=== PATIENT | male | born 1945 | race Caucasian/White ===

== ENCOUNTER 2017-05-18 13:23 | Inpatient (IN) ==
--- NOTE | 2017-05-18 14:01 | Diag Imaging Result Doc PS360 ---
EXAM: CHEST-2 VIEWS HISTORY: recent pneumonia cough rib pain left TECHNIQUE: PA and lateral chest COMMENT: There is ill-defined opacity over both lung bases. The heart size and pulmonary vascularity are within normal limits. There are no previous studies available for comparison. IMPRESSION: Bronchopneumonia. Electronically signed by Juan Mata 05/18/2017 1:58 PM
[2017-05-18] MEDS ORDERED: ALBUTEROL NEB INH ONE (15:30)
[2017-05-18 15:41] LABS: EOS# 0.22 X1000 (0.0-0.7); EOS% 0.8 % (0.0-10.0); HEMATOCRIT 37.2 % (42.0-52.0); HEMOGLOBIN 12.3 g/dL (14.0-18.0); MANUAL DIFF NEEDED? YES; MCH 34.7 PG (27-31); MCHC 33.1 g/dL (33-37); MCV 105.1 FL (81-99); MPV 10.8 FL (7.4-10.4); PLT 105 X1000 (130-400); RBC 3.54 XMIL (4.7-6.1)
[2017-05-18] MEDS ORDERED: NS 1,000 ML IV ONE (15:53)
[2017-05-18] MEDS ORDERED: ROCEPHIN IV ONE (15:54)
[2017-05-18 15:59] LABS: EOS 2 % (1-10); LYMPHS 75 % (21-51); NRBC 1 % (0-0)
[2017-05-18 16:00] LABS: AGAP 11; ALBUMIN 4.1 g/dL (3.5-5.0); ALKALINE PHOSPHATASE 65 U/L (32-122); BUN 17 mg/dL (8-22); CALCIUM 8.8 mg/dL (8.8-10.2); CHLORIDE 102 mmol/L (98-107); COSMO 278; GOT 21 U/L (10-34); GPT 20 U/L (10-44); POTASSIUM 3.6 mmol/L (3.5-5.1); SODIUM 137 mmol/L (136-145); TCO2 25 mmol/L (25-35); TOTAL PROTEIN 5.8 g/dL (6.3-8.3)
[2017-05-18] MEDS ORDERED: ROCEPHIN ONE (16:11)
[2017-05-18] MEDS ORDERED: NS 50 ML ONE (16:11)
[2017-05-18] MEDS ORDERED: TYLENOL PO PRN (17:24)
[2017-05-18] MEDS ORDERED: ZOFRAN IV PRN (17:24)
[2017-05-18 17:48] LABS: ALLEN TEST YES; BE 2.4 mmoll (-3.0-3.0); BLOOD TYPE ARTERIAL; DRAW SITE R RADIAL; METHB 0.8 % (0.0-1.5); MODALITY CANNULA; O2(CT) 16.1 mL/dL (15.0-23.0); PCO2(98.6) 38 mmHg (35-45); PO2(98.6) 66 mmHg (60-100); SAMPLE BLOOD; THB 12.2 g/dL (11.5-17.4); pH(98.6) 7.45 (7.35-7.45)
[2017-05-18 18:17] LABS: INR 3.33; PROTIME 37.7 Seconds (9.2-11.7)
[2017-05-18] MEDS: LEVAQUIN 500 MG/D5W 500 MG/100 ML IVPB IV SCH (18:36)
[2017-05-18] MEDS: SOLU-MEDROL IV SCH (18:36)
[2017-05-18] MEDS: DUONEB (A & A) INH SCH ×2 (19:10→23:10)
[2017-05-18] MEDS: TUSSIONEX LIQUID PO PRN (20:20)
[2017-05-18] MEDS: ZOSYN 4.5 GM in NS 100 ML IV SCH (20:20)
[2017-05-19] MEDS: ZOSYN 4.5 GM in NS 100 ML IV SCH ×4 (02:57→21:22)
[2017-05-19] MEDS: SOLU-MEDROL IV SCH ×3 (02:57→17:35)
[2017-05-19] MEDS ORDERED: TYLENOL PO PRN (03:30)
[2017-05-19] MEDS: DUONEB (A & A) INH SCH ×6 (03:58→23:03)
[2017-05-19 07:09] LABS: INR 2.35; PROTIME 26.1 Seconds (9.2-11.7)
[2017-05-19] MEDS: PROZAC PO SCH (07:59)
[2017-05-19] MEDS: HYZAAR 100/12.5 MG TAB PO SCH (07:59)
[2017-05-19] MEDS: NORVASC PO SCH (07:59)
[2017-05-19] MEDS: FOLIC ACID PO SCH (08:00)
[2017-05-19] MEDS ORDERED: COUMADIN PO SCH (09:00)
[2017-05-19] MEDS: HUMALOG SUBQ SCH ×2 (17:01→21:29)
[2017-05-19] MEDS: LEVAQUIN 500 MG/D5W 500 MG/100 ML IVPB IV SCH (17:02)
[2017-05-19] MEDS: DESYREL PO PRN (21:23)
[2017-05-19] MEDS: COUMADIN PO SCH (21:23)
[2017-05-19] MEDS: TUSSIONEX LIQUID PO PRN (21:23)
[2017-05-20] MEDS: SOLU-MEDROL IV SCH ×3 (02:38→18:18)
[2017-05-20] MEDS: ZOSYN 4.5 GM in NS 100 ML IV SCH ×4 (02:38→20:33)
[2017-05-20] MEDS: DUONEB (A & A) INH SCH ×6 (05:25→23:34)
[2017-05-20] MEDS: HUMALOG SUBQ SCH ×4 (06:41→21:52)
--- NOTE | 2017-05-20 09:36 | Diag Imaging Result Doc PS360 ---
EXAM: RIBS UNILAT W/PA CHEST LEFT HISTORY: Left rib pain TECHNIQUE: PA chest and left rib series, five views COMMENT: There is some atelectasis at the left base which was probably also present on 05/18/2017. There is actually some improvement in the atelectatic opacities in the right base. There is no evidence of pneumothorax or pleural fluid collection. There is a fracture of the lateral eighth rib on the left. This is not particularly displaced. IMPRESSION: Fracture of the left eighth rib. Atelectasis as described. Electronically signed by Juan Mata 05/20/2017 9:34 AM
[2017-05-20] MEDS: HYZAAR 100/12.5 MG TAB PO SCH (10:16)
[2017-05-20] MEDS: PROZAC PO SCH (10:16)
[2017-05-20] MEDS: FOLIC ACID PO SCH (10:16)
[2017-05-20] MEDS: NORVASC PO SCH (10:16)
[2017-05-20] MEDS ORDERED: BLISTEX MEDICATED BERRY LIP BALM TOP PRN (14:00)
[2017-05-20] MEDS: LEVAQUIN 500 MG/D5W 500 MG/100 ML IVPB IV SCH (16:39)
[2017-05-20] MEDS: COUMADIN PO SCH (20:33)
[2017-05-20] MEDS: DESYREL PO PRN (21:52)
[2017-05-21] MEDS: ZOSYN 4.5 GM in NS 100 ML IV SCH ×4 (02:52→20:41)
[2017-05-21] MEDS: SOLU-MEDROL IV SCH (02:52)
[2017-05-21] MEDS: DUONEB (A & A) INH SCH ×6 (03:26→22:53)
[2017-05-21] MEDS: HUMALOG SUBQ SCH ×4 (06:31→20:41)
[2017-05-21 06:34] LABS: HEMATOCRIT 36.1 % (42.0-52.0); MANUAL DIFF NEEDED? YES; MCH 34.8 PG (27-31); MCHC 33.2 g/dL (33-37); MCV 104.6 FL (81-99); MPV 10.5 FL (7.4-10.4); PLT 112 X1000 (130-400); RBC 3.45 XMIL (4.7-6.1)
[2017-05-21 06:44] LABS: INR 1.94; PROTIME 21.2 Seconds (9.2-11.7)
[2017-05-21 06:51] LABS: AGAP 13; ALBUMIN 3.9 g/dL (3.5-5.0); ALKALINE PHOSPHATASE 52 U/L (32-122); BUN 25 mg/dL (8-22); CALCIUM 8.3 mg/dL (8.8-10.2); CHLORIDE 104 mmol/L (98-107); COSMO 291; GOT 16 U/L (10-34); GPT 20 U/L (10-44); POTASSIUM 3.7 mmol/L (3.5-5.1); SODIUM 140 mmol/L (136-145); TCO2 23 mmol/L (25-35); TOTAL BILIRUBIN 0.95 mg/dL (0.20-1.00)
[2017-05-21 07:07] LABS: LYMPHS 57 % (21-51)
[2017-05-21] MEDS: FOLIC ACID PO SCH (08:24)
[2017-05-21] MEDS: NORVASC PO SCH (08:24)
[2017-05-21] MEDS: HYZAAR 100/12.5 MG TAB PO SCH (08:24)
[2017-05-21] MEDS: PROZAC PO SCH (08:24)
[2017-05-21] MEDS ORDERED: SOLU-MEDROL IV SCH (15:00)
[2017-05-21] MEDS ORDERED: PREDNISONE PO ONE (15:24)
[2017-05-21] MEDS: LEVAQUIN 500 MG/D5W 500 MG/100 ML IVPB IV SCH (17:15)
[2017-05-21] MEDS ORDERED: HUMALOG SUBQ ONE (18:45)
[2017-05-21] MEDS: COUMADIN PO SCH (20:41)
[2017-05-21] MEDS: DESYREL PO PRN (21:47)
[2017-05-22] MEDS: ZOSYN 4.5 GM in NS 100 ML IV SCH ×2 (02:30→07:56)
[2017-05-22] MEDS: DUONEB (A & A) INH SCH ×2 (03:16→08:02)
[2017-05-22 07:12] VITALS: BP 159/76
[2017-05-22] MEDS: HUMALOG SUBQ SCH (07:20)
[2017-05-22] MEDS: NORVASC PO SCH ×2 (07:56→08:02)
[2017-05-22] MEDS: PREDNISONE PO SCH ×2 (07:57→08:02)
[2017-05-22] MEDS: PROZAC PO SCH ×2 (07:57→08:02)
[2017-05-22] MEDS: HYZAAR 100/12.5 MG TAB PO SCH ×2 (07:57→08:02)
[2017-05-22] MEDS: FOLIC ACID PO SCH ×2 (07:57→08:02)
== END 2017-05-22 11:34 | disposition home or self-care (01) ==
LOC: P.ED 13:23 → 3N 16:03
PROVIDERS: ADMIT Internal Medicine; ATTEND Internal Medicine